=== PATIENT | female | born 1980 | race Caucasian/White ===

== ENCOUNTER 2024-05-11 08:34 | Emergency (ER) | payer MEDICARE ==
[~2024-05-11] VITALS: Ht 167.6 cm; Wt 73.0 kg
[~2024-05-11 08:34] MED LIST: AMLODIPINE BESYL5 MG PO; LORATADINE10 MG PO; MYRBETRIQ25 MG PO; NOVOLOG100 UNITS1; OCCUVITE; QUINAPRIL HCL20 MG PO; [UNRECOGNIZED DRUG - OTHER]; [UNRECOGNIZED DRUG - OTHER] PO; [UNRECOGNIZED DRUG - REMARK] SQ
[2024-05-11] MEDS ORDERED: LEVOFLOXACIN250 MG PO (09:29)
[2024-05-11 09:30] VITALS: PULSE 87; RESP 18; TEMP 98.2; O2SAT 97
== END 2024-05-11 09:37 | disposition home or self-care (01) ==
LOC: ER 08:41
DX: R31.9 Hematuria, unspecified (principal); E10.9 Type 1 diabetes mellitus without complications; H54.8 Legal blindness, as defined in USA
CPT/HCPCS: 51700; 81003; 87086; 87186; 99283

== ENCOUNTER → 2024-05-13 | Outpatient (REF) | payer MEDICARE ==
[~2024-05-13] MED LIST changes: +LEVOFLOXACIN250 MG PO
== END ==
LOC: CT 15:32
PROVIDERS: ATTEND Urology
DX: N13.30 Unspecified hydronephrosis (principal)
CPT/HCPCS: 74176; 81025